=== PATIENT | male | born 1940 | race Caucasian/White ===

== ENCOUNTER → 2020-04-18 | Outpatient (CLI) | payer MEDICARE, OTHER ==
[~2020-04-18] MED LIST: AMLO-150 PO; APIX5TAB PO; FLUT9.9S NAS; FOLI0.8T2 PO; LISI-170 PO; MAGN400T36 PO; METO50TA82 PO; MULT1TAB57 PO; OMEP-110 PO; SIMV40TA20 PO; TAMS-11 PO; UBID100C24 PO
== END | disposition home or self-care (01) ==
LOC: STAR 14:15
PROVIDERS: ATTEND Anesthesiology
DX: Z01.812 Encounter for preprocedural laboratory examination (principal); Z20.828 Contact with and (suspected) exposure to other viral communicable diseases
CPT/HCPCS: 36415; 87635

== ENCOUNTER 2020-04-21 10:27 | Observation (INO) | payer MEDICARE, OTHER ==
[~2020-04-21] VITALS: Ht 180.3 cm; Wt 84.0 kg
[~2020-04-21 10:27] MED LIST changes: -AMLO-150 PO; -APIX5TAB PO; -FLUT9.9S NAS; -FOLI0.8T2 PO; -LISI-170 PO; -MAGN400T36 PO; -METO50TA82 PO; -MULT1TAB57 PO; -OMEP-110 PO; -SIMV40TA20 PO; +SUCCINYLCHOLINE 20 MG/ML, 10ML ONE; -TAMS-11 PO; -UBID100C24 PO
[2020-04-21] MEDS ORDERED: SODIUM CHLORIDE 0.9% 1,000 ML IV SCH (11:00)
[2020-04-21] MEDS ORDERED: SODIUM CHLORIDE 0.9% 1,000 ML IV ONE (11:00)
[2020-04-21 11:11] VITALS: BP 153/93
[2020-04-21] MEDS ORDERED: MAGN400T36 PO (11:19)
[2020-04-21] MEDS ORDERED: MULT1TAB57 PO (11:19)
[2020-04-21] MEDS ORDERED: SIMV40TA20 PO (11:19)
[2020-04-21] MEDS ORDERED: LISI-170 PO (11:19)
[2020-04-21] MEDS ORDERED: OMEP-110 PO (11:19)
[2020-04-21] MEDS ORDERED: APIX5TAB PO (11:19)
[2020-04-21] MEDS ORDERED: TAMS-11 PO (11:19)
[2020-04-21] MEDS ORDERED: METO50TA82 PO (11:19)
[2020-04-21] MEDS ORDERED: UBID100C24 PO (11:19)
[2020-04-21] MEDS ORDERED: AMLO-150 PO (11:19)
[2020-04-21] MEDS ORDERED: FLUT9.9S NAS (11:19)
[2020-04-21] MEDS ORDERED: FOLI0.8T2 PO (11:19)
[2020-04-21] MEDS ORDERED: FENTANYL PF 250 MCG/5ML ONE (12:36)
[2020-04-21] MEDS ORDERED: MIDAZOLAM 1 MG/ML, 2ML ONE (12:36)
[2020-04-21 12:47] LABS: ANION GAP 3 mmol/L (5-15); CALCIUM 8.9 mg/dL (8.5-10.1); CHLORIDE 112 mmol/L (98-107); CREATININE 0.98 mg/dL (0.7-1.3)
[2020-04-21] MEDS ORDERED: LIDOCAINE 1%, 20ML ONE (12:59)
[2020-04-21] MEDS ORDERED: PROPOFOL 10 MG/ML, 20ML ONE (15:15)
[2020-04-21] MEDS ORDERED: ROCURONIUM 10MG/ML,5ML ONE (15:15)
[2020-04-21] MEDS ORDERED: HEPARIN 1,000 UNITS/ML, 10ML ONE ×3 (15:15)
[2020-04-21] MEDS ORDERED: DEXAMETHASONE 4 MG/ML, 1ML ONE (15:15)
[2020-04-21] MEDS ORDERED: ONDANSETRON 2MG/ML, 2ML ONE (15:15)
[2020-04-21] MEDS ORDERED: PHENYLEPHRINE 10 MG/ML ONE (15:27)
[2020-04-21] MEDS ORDERED: FENTANYL PF 100 MCG/2ML ONE (15:46)
[2020-04-21] MEDS ORDERED: FLUTICASONE NASAL SPRAY 16GM NAS PRN (16:00)
[2020-04-21] MEDS ORDERED: ACETAMINOPHEN 325 MG TABLET PO PRN (16:00)
[2020-04-21] MEDS ORDERED: MEPERIDINE/PF 25MG/0.5ML IVPush PRN (16:30)
[2020-04-21] MEDS ORDERED: DIAZEPAM 5 MG/ML, 2ML IVPush PRN (16:30)
[2020-04-21] MEDS ORDERED: OXYcodone 5 MG/5 ML ORAL.SOL UDC PO PRN (16:30)
[2020-04-21] MEDS ORDERED: ONDANSETRON 2MG/ML, 2ML IVPush PRN (16:30)
[2020-04-21] MEDS ORDERED: EPHEDRINE 50 MG/ML, 1ML IM PRN (16:30)
[2020-04-21] MEDS ORDERED: EPHEDRINE 50 MG/ML, 1ML IVPush PRN (16:30)
[2020-04-21] MEDS ORDERED: DIPHENHYDRAMINE 50 MG/ML, 1ML IVPush PRN (16:30)
[2020-04-21] MEDS ORDERED: FENTANYL PF 100 MCG/2ML IV PRN (16:30)
[2020-04-21] MEDS ORDERED: morphine SULFATE 10 MG/ML, 1ML IVPush PRN (16:30)
[2020-04-21] MEDS ORDERED: PROMETHAZINE 25 MG/ML, 1ML IVPush PRN (16:30)
[2020-04-21] MEDS ORDERED: APIXABAN 5 MG TABLET ONE (17:15)
[2020-04-21] MEDS ORDERED: ELIQUIS XX ONE (18:30)
[2020-04-21 18:53] VITALS: BP 112/66
[2020-04-21] MEDS: SOTALOL 80MG TABLET PO SCH (18:55)
[2020-04-21 19:08] VITALS: BP 120/76
[2020-04-21] MEDS: OXYcodone/APAP 5/325MG TABLET PO PRN (20:41)
[2020-04-21] MEDS ORDERED: APIXABAN 5 MG TABLET PO SCH ×2 (21:00)
[2020-04-21] MEDS ORDERED: SIMVASTATIN 40 MG TABLET PO SCH (21:00)
[2020-04-21] MEDS: APIXABAN 5 MG TABLET PO SCH (21:00)
[2020-04-21] MEDS ORDERED: SIMVASTATIN 10 MG TABLET PO SCH (22:56)
[2020-04-21] MEDS: COLCHICINE 0.6 MG CAPSULE PO SCH (23:22)
[2020-04-22] MEDS: OXYcodone/APAP 5/325MG TABLET PO PRN (00:32)
[2020-04-22 00:37] VITALS: BP 126/79
[2020-04-22 07:29] VITALS: BP 108/65
[2020-04-22] MEDS ORDERED: MAGNESIUM OXIDE 400 MG TABLET PO SCH (09:00)
[2020-04-22] MEDS ORDERED: MULTIVITAMIN 1 TABLET PO SCH (09:00)
[2020-04-22] MEDS ORDERED: TAMSULOSIN 0.4 MG CAP.ER.24H PO SCH (09:00)
[2020-04-22] MEDS ORDERED: FOLIC ACID 1 MG TABLET PO SCH (09:00)
[2020-04-22] MEDS ORDERED: OMEPRAZOLE 20 MG CAPSULE.DR PO SCH (09:00)
[2020-04-22] MEDS ORDERED: LISINOPRIL 20 MG TABLET PO SCH (09:00)
[2020-04-22] MEDS ORDERED: AMLODIPINE 5 MG TABLET PO SCH (09:00)
[2020-04-22] MEDS ORDERED: UBIDECARENONE HOMEMEDPO SCH (09:00)
[2020-04-22 09:59] VITALS: BP 122/81
[2020-04-22] MEDS: APIXABAN 5 MG TABLET PO SCH (10:03)
[2020-04-22] MEDS: COLCHICINE 0.6 MG CAPSULE PO SCH (10:04)
[2020-04-22] MEDS: SOTALOL 80MG TABLET PO SCH (10:04)
[2020-04-22] MEDS ORDERED: COLC0.6C3 PO (10:21)
[2020-04-22] MEDS ORDERED: SOTA80TA18 PO (10:21)
== END 2020-04-22 15:24 | disposition home or self-care (01) ==
LOC: CACL 10:27 → ORIP 15:49 → 5SO 17:48 → DCLOUNGE 04-22 15:09
PROVIDERS: ADMIT Internal Medicine Cardiovascular Disease; ATTEND Internal Medicine Cardiovascular Disease
DX: I48.91 Unspecified atrial fibrillation (principal); Z20.828 Contact with and (suspected) exposure to other viral communicable diseases; I48.92 Unspecified atrial flutter; I10 Essential (primary) hypertension; Z79.01 Long term (current) use of anticoagulants; Z79.899 Other long term (current) drug therapy; Z88.0 Allergy status to penicillin; Z87.891 Personal history of nicotine dependence
CPT/HCPCS: 36415; 71046; 75572; 80048; 82565; 82962; 85347; 87635; 93306; 93312; 93321; 93325; 93613; 93656; 93657; 93662; C1730; C1732; C1759; C1766; C1893; C1894; G0378; J0330; J1100; J1644; J2250; J2370; J2405; J2704; J3010; J3490; Q9967

== ENCOUNTER 2021-02-05 06:12 | Observation (INO) | payer MEDICARE, OTHER ==
[~2021-02-05] VITALS: Ht 180.3 cm; Wt 75.5 kg
[~2021-02-05 06:12] MED LIST changes: +AMLO-150 PO; +APIX5TAB PO; +COLC0.6C3 PO; +FLUT9.9S NAS; +FOLI0.8T5 PO; +LISI-170 PO; +MAGN400T36 PO; +METO50TA82 PO; +MULT1TAB58 PO; +OMEP-110 PO; +SIMV40TA20 PO; +SOTA80TA18 PO; -SUCCINYLCHOLINE 20 MG/ML, 10ML ONE; +TAMS-11 PO; +UBID100C24 PO
[2021-02-05 06:48] VITALS: BP 140/86
[2021-02-05] MEDS ORDERED: GLUC15006 PO (07:00)
[2021-02-05] MEDS: SODIUM CHLORIDE 0.9% 1,000 ML IV SCH ×3 (07:00→20:06)
[2021-02-05] MEDS ORDERED: Melatonin PO (07:00)
[2021-02-05 07:14] LABS: BASOPHILS % (AUTO) 0 % (0-1); EOSINOPHILS % (AUTO) 2 % (1-7); LYMPHOCYTES % (AUTO) 14 % (22-44); MEAN CORPUSCULAR HGB CONC 33.5 g/dL (33.2-36.2); MONOCYTES % (AUTO) 9 % (2-9); NEUTROPHILS % (AUTO) 74 % (42-75); PLATELET COUNT 319 x10^3/uL (130-400); RED BLOOD COUNT 5.01 x10^6/uL (4.38-5.82); RED CELL DISTRIBUTION WIDTH 15.4 % (9.4-14.8)
[2021-02-05 07:24] LABS: ANION GAP 4 mmol/L (5-15); CHLORIDE 111 mmol/L (98-107); CREATININE 0.75 mg/dL (0.7-1.3)
[2021-02-05] MEDS ORDERED: MIDAZOLAM 1 MG/ML, 5ML ONE (07:37)
[2021-02-05] MEDS ORDERED: LIDOCAINE 2%, 20ML ONE (07:37)
[2021-02-05] MEDS ORDERED: FENTANYL PF 100 MCG/2ML ONE (07:37)
[2021-02-05] MEDS ORDERED: VANCOMYCIN 500 MG ONE (07:38)
[2021-02-05] MEDS ORDERED: VANCOMYCIN 1,000 MG ONE (07:38)
[2021-02-05 08:18] LABS: INTERNATIONAL NORMALIZED RATIO 1.02 (0.93-1.1); PROTHROMBIN TIME 10.9 Seconds (9.6-11.5)
[2021-02-05] MEDS ORDERED: HOLD MEDICATION MC PRN (09:30)
[2021-02-05 13:41] VITALS: BP 139/82
[2021-02-05] MEDS: SOTALOL 80MG TABLET PO SCH (18:10)
[2021-02-05] MEDS: ACETAMINOPHEN 325 MG TABLET PO PRN (18:12)
[2021-02-05] MEDS ORDERED: VANCOMYCIN PMX 1GM/200ML 200 ML IVPB ONE (19:30)
[2021-02-05] MEDS: LISINOPRIL 20 MG TABLET PO SCH (20:21)
[2021-02-05 20:24] VITALS: BP 165/83
[2021-02-05] MEDS ORDERED: MELATONIN 5 MG TABLET PO PRN (21:00)
[2021-02-05] MEDS ORDERED: SIMVASTATIN 10 MG TABLET PO SCH (21:00)
[2021-02-05] MEDS ORDERED: DIPHENHYDRAMINE 50 MG/ML, 1ML IVPush PRN (22:00)
[2021-02-05] MEDS: SODIUM CHLORIDE FLUSH 10ML SYR IVF SCH (22:02)
[2021-02-06 02:00] VITALS: BP 158/84
[2021-02-06] MEDS: SOTALOL 80MG TABLET PO SCH (06:14)
[2021-02-06 06:35] VITALS: BP 151/77
[2021-02-06] MEDS ORDERED: ACET325T26 PO (08:37)
[2021-02-06] MEDS: SODIUM CHLORIDE FLUSH 10ML SYR IVF SCH (08:39)
[2021-02-06] MEDS: LISINOPRIL 20 MG TABLET PO SCH (08:39)
[2021-02-06] MEDS ORDERED: AMLODIPINE 5 MG TABLET PO SCH ×2 (09:00→21:00)
[2021-02-06] MEDS ORDERED: TAMSULOSIN 0.4 MG CAP.ER.24H PO SCH (09:00)
[2021-02-06] MEDS ORDERED: MULTIVITAMIN 1 TABLET PO SCH (09:00)
[2021-02-06] MEDS ORDERED: OMEPRAZOLE 20 MG CAPSULE.DR PO SCH (09:00)
[2021-02-06 09:52] VITALS: BP 142/77
[2021-02-06] MEDS: ACETAMINOPHEN 325 MG TABLET PO PRN (10:07)
== END 2021-02-06 10:38 | disposition home or self-care (01) ==
LOC: CACL 06:12 → 5SO 09:16 → CACL 11:05
PROVIDERS: ADMIT Internal Medicine Cardiovascular Disease; ATTEND Internal Medicine Cardiovascular Disease
DX: I49.5 Sick sinus syndrome (principal); I44.0 Atrioventricular block, first degree; I48.91 Unspecified atrial fibrillation; D68.69 Other thrombophilia; I10 Essential (primary) hypertension; Z79.01 Long term (current) use of anticoagulants; Z79.899 Other long term (current) drug therapy; Z88.0 Allergy status to penicillin; Z87.891 Personal history of nicotine dependence
CPT/HCPCS: 33208; 36415; 71045; 71046; 80048; 85025; 85610; 96374; 96375; 99156; C1779; C1785; C1892; G0378; J1200; J2250; J3010; J3370; J3490